=== PATIENT | male | born 1965 | race Caucasian/White ===

== ENCOUNTER → 2017-05-19 | Outpatient (CLI) | payer BC ==
[2017-05-19 18:41] LABS: ALT/SGPT 54 U/L (12-78); AMYLASE 30 U/L (25-115); AST/SGOT 20 U/L (15-37); BLOOD UREA NITROGEN 32 mg/dl (7-18); BUN/CREATININE RATIO 33.3 (10-20); CALCIUM 9.2 mg/dl (8.5-10.1); CARBON DIOXIDE 26 mmol/L (21-32); CHLORIDE 107 mmol/L (98-107); CREATININE 0.97 mg/dl (0.60-1.40); GLUCOSE 93 mg/dl (70-99); SODIUM 139 mmol/L (136-145)
[2017-05-19 18:44] LABS: ALB/GLOB RATIO 1.1 (0.9-2); ALKALINE PHOSPHATASE 149 U/L (45-117)
== END | disposition home or self-care (01) ==
LOC: C.LABMFLN 12:29
PROVIDERS: ATTEND Physician Assistant
DX: R94.5 Abnormal results of liver function studies (principal)

== ENCOUNTER → 2018-05-08 | Outpatient (CLI) | payer BC ==
[2018-05-08 18:29] LABS: BASO % 0.3 %; BASO ABS # 0.02 K/uL (0-0.2); EOS % 1.8 %; EOS ABS # 0.13 K/uL (0-0.5); HEMATOCRIT 46.5 % (42-52); HEMOGLOBIN 16.1 g/dL (14.0-18.0); IG# 0.01 K/uL (0.00-0.02); LYMPH % 27.1 %; LYMPH ABS # 1.91 K/uL (1.2-3.4); MEAN CELL VOLUME 89.8 fL (80-100); MEAN CORPUSCULAR HEMOGLOBIN 31.1 pg (25-34); MEAN CORPUSCULAR HGB CONC 34.6 g/dl (32-36); MEAN PLATELET VOLUME 11.5 fL (7.4-10.4); MONO % 7.1 %; NEUT % 63.6 %; NEUT ABS # 4.47 K/uL (1.4-6.5); PLATELET COUNT 230 K/uL (130-400); RED CELL DISTRIBUTION WIDTH CV 14.1 % (11.5-14.5); WHITE BLOOD COUNT 7.04 K/uL (4.8-10.8)
[2018-05-08 18:46] LABS: MONOSPOT NEG (NEG)
[2018-05-08 19:43] LABS: ALKALINE PHOSPHATASE 87 U/L (45-117); ALT/SGPT 48 U/L (12-78); AST/SGOT 25 U/L (15-37); BLOOD UREA NITROGEN 12 mg/dl (7-18); CALCIUM 9.1 mg/dl (8.5-10.1); CARBON DIOXIDE 29 mmol/L (21-32); CHOLESTEROL 220 mg/dl (0-200); CREATININE 0.91 mg/dl (0.60-1.40); GLUCOSE 92 mg/dl (70-99); LDL CHOLESTEROL CALCULATED 133 mg/dl; LIPASE 122 U/L (73-393); POTASSIUM 3.7 mmol/L (3.5-5.1); SODIUM 139 mmol/L (136-145); TOTAL PROTEIN 7.3 gm/dl (6.4-8.2); TRANSFERRIN 249 mg/dl (200-360)
[2018-05-10 10:46] LABS: EBV EARLY ANTIGEN AB < 9.00 U/ML
== END | disposition home or self-care (01) ==
LOC: C.LABMFLN 13:02
PROVIDERS: ATTEND Physician Assistant
DX: R10.9 Unspecified abdominal pain (principal); R94.5 Abnormal results of liver function studies